=== PATIENT | female | born 1970 | race American Indian/Alaskan Native ===

== ENCOUNTER 2020-12-02 07:48 | Day surgery (SDC) | payer OTHER ==
[2020-12-02] MEDS ORDERED: ASPIRIN EC 325 MG TAB PO ONE (08:13)
[2020-12-02 08:38] LABS: Basophils # (Auto) 0.1 K/mm3 (0.0-0.1); Basophils % (Auto) 0.9 % (0.0-1.8); Eosinophils # (Auto) 0.1 K/mm3 (0.0-0.4); Eosinophils % (Auto) 1.3 % (0.0-4.3); Hematocrit 39.3 % (30.3-42.9); Hemoglobin 13.9 gm/dl (10.1-14.3); Lymphocytes # (Auto) 2.7 K/mm3 (1.2-5.4); Lymphocytes % (Auto) 26.2 % (13.4-35.0); Mean Corpuscular HGB Conc 35 % (30-34); Mean Corpuscular Volume 92 fl (79-97); Monocytes # (Auto) 0.4 K/mm3 (0.0-0.8); Monocytes % (Auto) 4.2 % (0.0-7.3); Platelet Count 309 K/mm3 (140-440); Red Blood Count 4.25 M/mm3 (3.65-5.03); Red Cell Distribution Width 13.4 % (13.2-15.2)
[2020-12-02 08:49] LABS: Blood Urea Nitrogen 13 mg/dL (7-17); Hemolysis Index 6
[2020-12-02 08:51] LABS: INR 0.83 (0.87-1.13); Partial Thromboplastin Time 29.3 Sec. (24.2-36.6)
[2020-12-02 08:53] LABS: BUN/Creatinine Ratio 19
[2020-12-02] MEDS ORDERED: SODIUM CHLORIDE 0.9% 500 ML 500 ML IV SCH (09:00)
[2020-12-02] MEDS ORDERED: HEPARIN/NS 5000 UNIT/500ML 1,000 ML IR ONE (09:20)
[2020-12-02] MEDS ORDERED: VERAPAMIL 5 MG/2 ML INJ ONE (09:20)
[2020-12-02] MEDS ORDERED: LIDOCAINE (2%) 20 MG/1 ML VIAL 20 ML MDV INFILTRATI ONE (09:20)
[2020-12-02] MEDS ORDERED: HEPARIN 10,000 UNITS/10 ML VIAL ONE ×2 (09:20→09:21)
[2020-12-02] MEDS ORDERED: NITROGLYCERIN SYRINGE 3 ML ONE (09:21)
[2020-12-02] MEDS ORDERED: fentaNYL 100 MCG/2 ML INJ ONE (09:22)
[2020-12-02] MEDS ORDERED: MIDAZOLAM 2 MG/2 ML INJ ONE (09:22)
[2020-12-02] MEDS ORDERED: ACETAMINOPHEN 325 MG TAB PO NR (11:38)
[2020-12-02] MEDS ORDERED: POTASSIUM CHLORIDE ER 20 MEQ TAB PO NR (11:40)
--- NOTE | 2020-12-02 12:28 | Cardiac Catherization Report ---
DATE OF PROCEDURE: 12/02/2020 CARDIAC CATHETERIZATION REFERRING PHYSICIAN: Dr. Jeremy Wells. INDICATIONS FOR PROCEDURE: The patient is a pleasant 50-year-old -[place] female who was found to have a cardiomyopathy and abnormal nuclear stress test, referred for left heart catheterization. Risks, benefits and alternatives explained at length prior to obtaining informed consent. PROCEDURE IN DETAIL: The patient was brought [facility] the [facility] in a postabsorptive state, prepped and draped in sterile fashion. Alfonso's test in right hand is normal. Once adequate sedation was achieved, 2 mL of 2% lidocaine used to anesthetize the right wrist. A standard 6-Bulgarian hydrophilic sheath used to cannulate the right radial artery via modified Seldinger technique. All exchanges performed to exchange a J-tip guidewire. JL3.5 catheter was used to engage the left main. No dampening or ventricularization. Cineangiography performed in all projections. JR4 catheter used to cross the aortic valve under fluoroscopic guidance. Left ventriculography performed in the 30 CAMPUZANO and 30 REGAN projections via hand injection, catheter flushed. Manual pullback performed with continuous pressure monitoring. Catheter was used to engage the right coronary. No dampening or ventricularization. Cineangiography performed in all projections. Next, catheter removed from the body of wire, sheath removed. Manual pressure was used to achieve hemostasis. FINDINGS: Aortic pressure is 170/90. LV pressure is 170. LVEDP of 18 mmHg. Left ventriculography reveals severe global left ventricular hypokinesis, estimated ejection fraction of 25%-30%. No evidence of aortic stenosis. CORONARY ANATOMY: Strongly left dominant system. Right coronary is a small nondominant vessel, no significant disease. Left main is short. No significant disease. Left circumflex, large vessel, gives a left PDA. No significant disease. LAD is a moderate sized vessel, courses anterior intraventricular groove, wraps around the apex, no significant disease of the LAD or diagonal system. CONCLUSIONS: 1. No angiographic evidence of significant epicardial coronary artery disease in this left dominant system. 2. No evidence of aortic stenosis. 3. Severe global left ventricular hypokinesis, estimated ejection fraction of 25%-30%. 4. High normal left ventricular end-diastolic pressure. These findings are consistent with mildly dilated severe nonischemic cardiomyopathy, likely due to hypertensive heart disease. No evidence of coronary artery disease and no history of alcohol abuse or family history. Long discussion with the patient. Medical management at this point would discontinue amlodipine, double Lasix to 40 once a day, add potassium supplementation, also double carvedilol to 12.5 twice a day. Hold metformin for 2 days, moving forward. We will replete potassium while here. The patient will follow up with us in the office. Stable cardiac status. TID: [id number] RECEIPT: [id number] RUBEN/ESPERANZA/WILFREDO
--- NOTE | 2020-12-02 12:45 | Short Stay Summary ---
Short Stay Documentation Date of service: 12/02/20 - History H&P: obtained from office - Allergies and Medications Current Medications: Allergies No Known Allergies Allergy (Unverified 12/02/20 08:13) Home Medications Medication Instructions Recorded Confirmed Last Taken Type Albuterol Sulfate [Proventil Hfa] 6.7 gm IH PRN 12/02/20 12/02/20 Unknown History AtorvaSTATin [Lipitor] 20 mg PO QHS 12/02/20 12/02/20 12/01/20 History Empagliflozin (Nf) [Jardiance (Nf)] 1 tab PO DAILY 12/02/20 12/02/20 12/01/20 History Esomeprazole Magnesium [NexIUM] 40 mg PO QDAY 12/02/20 12/02/20 12/01/20 History Furosemide [Lasix] 20 mg PO QDAY 12/02/20 12/02/20 12/01/20 History Metformin HCl [metFORMIN] 1,000 mg PO BID 12/02/20 12/02/20 12/01/20 20:00 History Semaglutide [Ozempic] 1 mg SQ QWEEK 12/02/20 12/02/20 12/01/20 History amLODIPine [Norvasc] 10 mg PO DAILY 12/02/20 12/02/20 12/01/20 History carvediloL [Coreg] 6.25 mg PO BID 12/02/20 12/02/20 12/01/20 History hydroCHLOROthiazide 12.5 mg PO DAILY 12/02/20 12/02/20 12/01/20 History [Hydrochlorothiazide] ramipriL [Ramipril] 10 mg PO BID 12/02/20 12/02/20 12/01/20 History Active Medications Sodium Chloride (Nacl 0.9% 500 Ml) 500 mls @ 50 mls/hr IV DIRECT SHANON Stop: 12/02/20 18:59 Last Admin: 12/02/20 11:21 Dose: 0 mls Documented by: - Physical exam Integumentary: other (dressing clean dry intact no signs of bleeding or hematoma) - Brief post op/procedure progress note Date of procedure: 12/02/20 Pre-op diagnosis: abnomral stress Post-op diagnosis: other (normal coronaires) Anesthesia: local Estimated blood loss: minimal - Disposition Condition at discharge: Good Disposition: 01 HOME / SELF CARE / HOMELESS Short Stay Discharge Plan Activity: advance as tolerated Diet: low fat, low cholesterol, low salt Wound: keep clean and dry, per your surgeon's advice Follow up with: DEDE PINEDA MD [Primary Care Provider] - 7 Days JURGEN BRAVO MD [Staff Physician] - 12/25/20 3:30 pm (Patient has follow up appointment with Dr. Bravo on 12/25/2020 at 3:30pm. )
[2020-12-02 13:07] VITALS: BP 145/84
--- NOTE | 2020-12-03 11:46 | Electrocardiograph Report ---
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
== END 2020-12-02 14:20 | disposition home or self-care (01) ==
LOC: CATHLABREC 07:48
PROVIDERS: ATTEND Internal Medicine
DX: R94.39 Abnormal result of other cardiovascular function study (principal); I11.0 Hypertensive heart disease with heart failure; I50.22 Chronic systolic (congestive) heart failure; E11.9 Type 2 diabetes mellitus without complications; J45.909 Unspecified asthma, uncomplicated; G47.30 Sleep apnea, unspecified; E66.9 Obesity, unspecified; K21.9 Gastro-esophageal reflux disease without esophagitis; E78.00 Pure hypercholesterolemia, unspecified; Z87.891 Personal history of nicotine dependence; Z79.899 Other long term (current) drug therapy; Z98.890 Other specified postprocedural states
CPT/HCPCS: 36415; 80048; 85025; 85610; 85730; 93005; 93458; C1894; J1644; J2250; J3010; J7040; Q9967